=== PATIENT | female | born 1970 | race American Indian/Alaskan Native ===

== ENCOUNTER 2018-12-16 17:33 | Emergency (ER) | payer SELFPAY ==
[2018-12-16 18:00] VITALS: BP 100/47
[2018-12-16] MEDS ORDERED: ASPIRIN PO ONE (18:02)
--- NOTE | 2018-12-16 19:47 | XRay Report ---
CHEST 1 VIEW INDICATION / CLINICAL INFORMATION: Chest Pain. COMPARISON: 01/26/2015 FINDINGS: SUPPORT DEVICES: None. HEART / MEDIASTINUM: No significant abnormality. LUNGS / PLEURA: No significant pulmonary or pleural abnormality.. No pneumothorax. ADDITIONAL FINDINGS: No significant additional findings. IMPRESSION: 1. No acute findings. Signer Name: Horacio Johnson MD Signed: 12/16/2018 7:43 PM Workstation Name: [id number]
[2018-12-16 19:53] LABS: Eosinophils # (Auto) 0.1 K/mm3 (0.0-0.4); Eosinophils % (Auto) 3.4 % (0.0-4.3); Hematocrit 42.6 % (30.3-42.9); Lymphocytes # (Auto) 2.1 K/mm3 (1.2-5.4); Mean Corpuscular HGB Conc 33 % (30-34); Mean Corpuscular Volume 88 fl (79-97); Monocytes # (Auto) 0.3 K/mm3 (0.0-0.8); Monocytes % (Auto) 5.9 % (0.0-7.3); Platelet Count 158 K/mm3 (140-440); Red Blood Count 4.85 M/mm3 (3.65-5.03); Red Cell Distribution Width 13.6 % (13.2-15.2)
[2018-12-16 19:59] LABS: BUN/Creatinine Ratio 13; Blood Urea Nitrogen 9 mg/dL (7-17); Calcium 10.7 mg/dL (8.4-10.2); Hemolysis Index 47
== END 2018-12-16 22:55 | disposition left against medical advice (07) ==
LOC: ED 17:33
DX: R07.89 Other chest pain (principal); Z53.21 Procedure and treatment not carried out due to patient leaving prior to being seen by health care provider
CPT/HCPCS: 36415; 71045; 80048; 84484; 85025; 93005; 93010

== ENCOUNTER 2019-03-03 20:50 | Emergency (ER) | payer OTHER ==
[2019-03-03 23:05] LABS: Bacteria,Urine 1+ /HPF (Negative); Bilirubin,Urine NEG (Negative); Blood,Urine NEG (Negative); Color,Urine Yellow (Yellow); Mucus,Urine FEW /HPF; Protein,Urine <15 mg/dL mg/dL (Negative); Urobilinogen,Urine < 2.0 mg/dL (<2.0)
[2019-03-03 23:21] VITALS: BP 124/65
[2019-03-04] MEDS ORDERED: ALBUTEROL 2.5 MG/3 ML NEBU IH ONE (00:50)
[2019-03-04] MEDS ORDERED: IBUPROFEN 800 MG TAB PO ONE (00:50)
[2019-03-04] MEDS ORDERED: predniSONE 20 MG TAB PO ONE (00:50)
--- NOTE | 2019-03-04 03:29 | Emergency Department Report ---
- General Chief Complaint: Urogenital-Female Stated Complaint: UTI /ASTHMA Time Seen by Provider: 03/04/19 00:49 Source: patient Mode of arrival: Ambulatory Limitations: No Limitations - History of Present Illness Initial Comments: ms. Meyer is a 48 y/o aaf who presents to ER for coughing and wheezing 3 days. Daughter is here tonight for same symptoms. Patient has a history of bronchitis asthma. States she is out of albuterol inhaler, patient denies of the symptoms of dizziness no lightheadedness no headache no nausea vomiting no back pain Pt does endorse intermittent dysuria MD Complaint: cough, sore throat, rhinorrhea, nasal congestion, other (wheezing ) Onset/Timin -: days(s) Severity scale (0 -10): 4 Quality: sharp Consistency: constant Improves With: nothing Worsens With: activity, other (environmental exposure) Associated Symptoms: rhinorrhea, nasal congestion, sore throat, cough Treatments Prior to Arrival: none - Related Data Home Medications Medication Instructions Recorded Confirmed Last Taken metFORMIN [Glucophage] 1,000 mg PO BID 01/26/15 05/06/15 05/05/15 Albuterol Sulfate [Proventil HFA] 2 puff IH PRN PRN 02/16/15 05/06/15 05/06/15 12:00 Acetaminophen [Tylenol] 500 mg PO Q4HR 05/06/15 05/06/15 1 Week Ago ~04/29/15 Ibuprofen [Motrin] 400 mg PO Q6H PRN 05/06/15 05/06/15 2 Weeks Ago ~04/22/15 Previous Rx's Medication Instructions Recorded Last Taken Type HYDROcodone/APAP 5-325 [[place] 1 each PO Q6HR PRN #30 tablet 05/07/15 Unknown Rx 5/325] Ibuprofen [Motrin] 800 mg PO Q8HR PRN #30 tablet 05/07/15 Unknown Rx oxyCODONE /ACETAMINOPHEN [Percocet 1 tab PO Q6HR PRN #30 tablet 05/07/15 Unknown Rx 5/325] ALBUTEROL NEB's [Proventil 0.083% 2.5 mg IH Q6H PRN #25 vial 03/04/19 Unknown Rx NEBS] Azithromycin [Zithromax Z-GAGE] 250 mg PO DAILY #6 tab 03/04/19 Unknown Rx Ibuprofen [Motrin 800 MG tab] 800 mg PO Q8HR PRN #30 tablet 03/04/19 Unknown Rx predniSONE [Deltasone] 20 mg PO QDAY 5 Days #10 tab 03/04/19 Unknown Rx Allergies Allergy/AdvReac Type Severity Reaction Status Date / Time No Known Allergies Allergy Verified 04/29/15 10:01 ED Review of Systems ROS: Stated complaint: UTI /ASTHMA Other details as noted in HPI Constitutional: denies: chills, fever Eyes: denies: eye pain, eye discharge, vision change ENT: ear pain, throat pain, congestion Respiratory: cough, shortness of breath, wheezing Cardiovascular: denies: chest pain, palpitations Endocrine: no symptoms reported Gastrointestinal: denies: abdominal pain, nausea, vomiting, diarrhea Genitourinary: frequency, dyspareunia. denies: urgency, dysuria, hematuria, discharge Musculoskeletal: denies: back pain, joint swelling, arthralgia Skin: as per HPI Neurological: denies: headache, weakness, paresthesias Psychiatric: denies: anxiety, depression Hematological/Lymphatic: denies: easy bleeding, easy bruising ED Past Medical Hx - Past Medical History Previous Medical History?: Yes Hx Hypertension: No Hx Congestive Heart Failure: No Hx Diabetes: Yes Hx Renal Disease: No Hx Seizures: No Hx Asthma: Yes (last used inhaler 04/28/15) Hx COPD: No Additional medical history: Menorrhagia. Anemia - Surgical History Past Surgical History?: Yes Additional Surgical History: back surgery. partial hysterectomy - Social History Smoking Status: Current Every Day Smoker - Medications Home Medications: Home Medications Medication Instructions Recorded Confirmed Last Taken Type metFORMIN [Glucophage] 1,000 mg PO BID 01/26/15 05/06/15 05/05/15 History Albuterol Sulfate [Proventil HFA] 2 puff IH PRN PRN 02/16/15 05/06/15 05/06/15 12:00 History Acetaminophen [Tylenol] 500 mg PO Q4HR 05/06/15 05/06/15 1 Week Ago History ~04/29/15 Ibuprofen [Motrin] 400 mg PO Q6H PRN 05/06/15 05/06/15 2 Weeks Ago History ~04/22/15 HYDROcodone/APAP 5-325 [[place] 1 each PO Q6HR PRN #30 tablet 05/07/15 Unknown Rx 5/325] Ibuprofen [Motrin] 800 mg PO Q8HR PRN #30 tablet 05/07/15 Unknown Rx oxyCODONE /ACETAMINOPHEN [Percocet 1 tab PO Q6HR PRN #30 tablet 05/07/15 Unknown Rx 5/325] ALBUTEROL NEB's [Proventil 0.083% 2.5 mg IH Q6H PRN #25 vial 03/04/19 Unknown Rx NEBS] Azithromycin [Zithromax Z-GAGE] 250 mg PO DAILY #6 tab 03/04/19 Unknown Rx Ibuprofen [Motrin 800 MG tab] 800 mg PO Q8HR PRN #30 tablet 03/04/19 Unknown Rx predniSONE [Deltasone] 20 mg PO QDAY 5 Days #10 tab 03/04/19 Unknown Rx ED Physical Exam - General Limitations: No Limitations General appearance: alert, in no apparent distress - Head Head exam: Present: atraumatic, normocephalic - Eye Eye exam: Present: normal appearance, PERRL, EOMI Pupils: Present: normal accommodation - ENT ENT exam: Present: mucous membranes moist - Neck Neck exam: Present: normal inspection, tenderness (robe on urinalysis), full ROM - Respiratory Respiratory exam: Present: wheezes. Absent: respiratory distress, rales, rhonchi, stridor, chest wall tenderness, decreased breath sounds, prolonged expiratory - Cardiovascular Cardiovascular Exam: Present: regular rate, normal rhythm, normal heart sounds (the same). Absent: systolic murmur, diastolic murmur, rubs, gallop - GI/Abdominal GI/Abdominal exam: Present: soft, normal bowel sounds. Absent: distended, tenderness, bruit, hernia - Extremities Exam Extremities exam: Present: normal inspection, full ROM, normal capillary refill - Back Exam Back exam: Present: normal inspection, full ROM. Absent: tenderness, CVA tenderness (R), CVA tenderness (L), rash noted - Neurological Exam Neurological exam: Present: alert, oriented X3, CN II-XII intact, normal gait, reflexes normal. Absent: motor sensory deficit - Psychiatric Psychiatric exam: Present: normal affect, normal mood - Skin Skin exam: Present: warm, dry, intact, normal color. Absent: rash ED Course Vital Signs 03/03/19 23:19 Temperature 97.6 F Pulse Rate 79 Respiratory 18 Rate Blood Pressure 124/65 O2 Sat by Pulse 95 Oximetry ED Medical Decision Making - Medical Decision Making symptoms improved , plan: tx for for bronchitis , UTI, azithromycin, albuterol, ibuprofen, tessalon pearls, follow up with pcp in 2-3 days. return to emergency is symptoms worsen. Critical care attestation.: If time is entered above; I have spent that time in minutes in the direct care of this critically ill patient, excluding procedure time. ED Disposition Clinical Impression: Bronchitis UTI (urinary tract infection) Qualifiers: Urinary tract infection type: acute cystitis Hematuria presence: without hematuria Qualified Code(s): N30.00 - Acute cystitis without hematuria Disposition: TO HOME OR SELFCARE Is pt being admited?: No Does the pt Need Aspirin: No Condition: Stable Instructions: Chronic Bronchitis (ED) Prescriptions: predniSONE [Deltasone] 20 mg PO QDAY 5 Days #10 tab Ibuprofen [Motrin 800 MG tab] 800 mg PO Q8HR PRN #30 tablet PRN Reason: pain fever ALBUTEROL NEB's [Proventil 0.083% NEBS] 2.5 mg IH Q6H PRN #25 vial PRN Reason: shortness of breath wheezing Azithromycin [Zithromax Z-GAGE] 250 mg PO DAILY #6 tab Referrals: [facility] [Outside] - 3-5 Days Forms: Work/School Release Form(ED)
== END 2019-03-04 03:25 | disposition home or self-care (01) ==
LOC: ED 20:50
DX: J40 Bronchitis, not specified as acute or chronic (principal); N39.0 Urinary tract infection, site not specified; E11.9 Type 2 diabetes mellitus without complications; F17.200 Nicotine dependence, unspecified, uncomplicated; Z90.710 Acquired absence of both cervix and uterus; Z98.890 Other specified postprocedural states; Z79.1 Long term (current) use of non-steroidal anti-inflammatories (NSAID); Z79.899 Other long term (current) drug therapy
CPT/HCPCS: 81001; 94640; 99283; J7512

== ENCOUNTER 2021-05-11 00:01 | Emergency (ER) | payer SELFPAY ==
[2021-05-11] MEDS ORDERED: oxyCODONE /ACETAMINOPHEN 5-325MG TAB PO ONE (04:09)
--- NOTE | 2021-05-11 04:19 | Emergency Department Report ---
ED ENT HPI - General Chief complaint: Dental/Oral Stated complaint: TOOTH INFECTION/CHEST PAIN Time Seen by Provider: 05/11/21 04:07 Source: patient Mode of arrival: Ambulatory Limitations: No Limitations - History of Present Illness MD complaint: tooth pain -: Gradual Location: tooth # 1 - Area of pain to the small region. Quality: dull Consistency: constant Improves with: none Worsens with: none Context- Dental: trauma Associated Symptoms: toothache - Related Data Home Medications Medication Instructions Recorded Confirmed Last Taken metFORMIN [Glucophage] 1,000 mg PO BID 01/26/15 05/06/15 05/05/15 Albuterol Sulfate [Proventil HFA] 2 puff IH PRN PRN 02/16/15 05/06/15 05/06/15 12:00 Acetaminophen [Tylenol] 500 mg PO Q4HR 05/06/15 05/06/15 1 Week Ago ~04/29/15 Ibuprofen [Motrin] 400 mg PO Q6H PRN 05/06/15 05/06/15 2 Weeks Ago ~04/22/15 Previous Rx's Medication Instructions Recorded Last Taken Type HYDROcodone/APAP 5-325 [[place] 1 each PO Q6HR PRN #30 tablet 05/07/15 Unknown Rx 5/325] Ibuprofen [Motrin] 800 mg PO Q8HR PRN #30 tablet 05/07/15 Unknown Rx oxyCODONE /ACETAMINOPHEN [Percocet 1 tab PO Q6HR PRN #30 tablet 05/07/15 Unknown Rx 5/325] ALBUTEROL NEB's [Proventil 0.083% 2.5 mg IH Q6H PRN #25 vial 03/04/19 Unknown Rx NEBS] Azithromycin [Zithromax Z-GAGE] 250 mg PO DAILY #6 tab 03/04/19 Unknown Rx Ibuprofen [Motrin 800 MG tab] 800 mg PO Q8HR PRN #30 tablet 03/04/19 Unknown Rx predniSONE [Deltasone] 20 mg PO QDAY 5 Days #10 tab 03/04/19 Unknown Rx Amoxicillin [Amoxicillin TAB] 875 mg PO BID #20 tablet 05/11/21 Unknown Rx Chlorhexidine Mouthwash [Peridex] 15 ml MM BID #1 bottle 05/11/21 Unknown Rx Lidocaine Viscous 2% 5 ml MM Q3H PRN #120 udc 05/11/21 Unknown Rx Allergies Allergy/AdvReac Type Severity Reaction Status Date / Time No Known Allergies Allergy Verified 04/29/15 10:01 ED Dental HPI - General Chief complaint: Dental/Oral Stated complaint: TOOTH INFECTION/CHEST PAIN Time Seen by Provider: 05/11/21 04:07 Source: patient Mode of arrival: Ambulatory Limitations: No Limitations - Related Data Home Medications Medication Instructions Recorded Confirmed Last Taken metFORMIN [Glucophage] 1,000 mg PO BID 01/26/15 05/06/15 05/05/15 Albuterol Sulfate [Proventil HFA] 2 puff IH PRN PRN 02/16/15 05/06/15 05/06/15 1 2:00 Acetaminophen [Tylenol] 500 mg PO Q4HR 05/06/15 05/06/15 1 Week Ago ~04/29/15 Ibuprofen [Motrin] 400 mg PO Q6H PRN 05/06/15 05/06/15 2 Weeks Ago ~04/22/15 Previous Rx's Medication Instructions Recorded Last Taken Type HYDROcodone/APAP 5-325 [[place] 1 each PO Q6HR PRN #30 tablet 05/07/15 Unknown Rx 5/325] Ibuprofen [Motrin] 800 mg PO Q8HR PRN #30 tablet 05/07/15 Unknown Rx oxyCODONE /ACETAMINOPHEN [Percocet 1 tab PO Q6HR PRN #30 tablet 05/07/15 Unknown Rx 5/325] ALBUTEROL NEB's [Proventil 0.083% 2.5 mg IH Q6H PRN #25 vial 03/04/19 Unknown Rx NEBS] Azithromycin [Zithromax Z-GAGE] 250 mg PO DAILY #6 tab 03/04/19 Unknown Rx Ibuprofen [Motrin 800 MG tab] 800 mg PO Q8HR PRN #30 tablet 03/04/19 Unknown Rx predniSONE [Deltasone] 20 mg PO QDAY 5 Days #10 tab 03/04/19 Unknown Rx Amoxicillin [Amoxicillin TAB] 875 mg PO BID #20 tablet 05/11/21 Unknown Rx Chlorhexidine Mouthwash [Peridex] 15 ml MM BID #1 bottle 05/11/21 Unknown Rx Lidocaine Viscous 2% 5 ml MM Q3H PRN #120 udc 05/11/21 Unknown Rx Allergies Allergy/AdvReac Type Severity Reaction Status Date / Time No Known Allergies Allergy Verified 04/29/15 10:01 ED Review of Systems ROS: Stated complaint: TOOTH INFECTION/CHEST PAIN Other details as noted in HPI Comment: All other systems reviewed and negative ED Past Medical Hx - Past Medical History Hx Hypertension: No Hx Congestive Heart Failure: No Hx Diabetes: Yes Hx Renal Disease: No Hx Seizures: No Hx Asthma: Yes (last used inhaler 04/28/15) Hx COPD: No Additional medical history: Menorrhagia. Anemia - Surgical History Additional Surgical History: back surgery. partial hysterectomy - Social History Smoking Status: Current Every Day Smoker - Medications Home Medications: Home Medications Medication Instructions Recorded Confirmed Last Taken Type metFORMIN [Glucophage] 1,000 mg PO BID 01/26/15 05/06/15 05/05/15 History Albuterol Sulfate [Proventil HFA] 2 puff IH PRN PRN 02/16/15 05/06/15 05/06/15 12:00 History Acetaminophen [Tylenol] 500 mg PO Q4HR 05/06/15 05/06/15 1 Week Ago History ~04/29/15 Ibuprofen [Motrin] 400 mg PO Q6H PRN 05/06/15 05/06/15 2 Weeks Ago History ~04/22/15 HYDROcodone/APAP 5-325 [[place] 1 each PO Q6HR PRN #30 tablet 05/07/15 Unknown Rx 5/325] Ibuprofen [Motrin] 800 mg PO Q8HR PRN #30 tablet 05/07/15 Unknown Rx oxyCODONE /ACETAMINOPHEN [Percocet 1 tab PO Q6HR PRN #30 tablet 05/07/15 Unknown Rx 5/325] ALBUTEROL NEB's [Proventil 0.083% 2.5 mg IH Q6H PRN #25 vial 03/04/19 Unknown Rx NEBS] Azithromycin [Zithromax Z-GAGE] 250 mg PO DAILY #6 tab 03/04/19 Unknown Rx Ibuprofen [Motrin 800 MG tab] 800 mg PO Q8HR PRN #30 tablet 03/04/19 Unknown Rx predniSONE [Deltasone] 20 mg PO QDAY 5 Days #10 tab 03/04/19 Unknown Rx Amoxicillin [Amoxicillin TAB] 875 mg PO BID #20 tablet 05/11/21 Unknown Rx Chlorhexidine Mouthwash [Peridex] 15 ml MM BID #1 bottle 05/11/21 Unknown Rx Lidocaine Viscous 2% 5 ml MM Q3H PRN #120 udc 05/11/21 Unknown Rx ED Physical Exam - General Limitations: No Limitations General appearance: alert, in no apparent distress - Head Head exam: Present: atraumatic, normocephalic - Eye Eye exam: Present: normal appearance - ENT ENT exam: Present: mucous membranes moist, other - Neck Neck exam: Present: normal inspection - Respiratory Respiratory exam: Present: normal lung sounds bilaterally. Absent: respiratory distress - Cardiovascular Cardiovascular Exam: Present: regular rate, normal rhythm. Absent: systolic murmur, diastolic murmur, rubs, gallop - GI/Abdominal GI/Abdominal exam: Present: soft, normal bowel sounds - Extremities Exam Extremities exam: Present: normal inspection - Back Exam Back exam: Present: normal inspection - Neurological Exam Neurological exam: Present: alert, oriented X3 - Psychiatric Psychiatric exam: Present: normal affect, normal mood - Skin Skin exam: Present: warm, dry, intact, normal color. Absent: rash ED Course Vital Signs 05/11/21 05/11/21 00:41 00:51 Temperature 98.1 F 98.1 F Pulse Rate 81 80 Respiratory 18 16 Rate Blood Pressure 138/83 165/95 O2 Sat by Pulse 95 97 Oximetry Critical care attestation.: If time is entered above; I have spent that time in minutes in the direct care of this critically ill patient, excluding procedure time. ED Disposition Clinical Impression: Dentalgia Disposition: 01 HOME / SELF CARE / HOMELESS Is pt being admited?: No Does the pt Need Aspirin: No Condition: Stable Instructions: Acute Pain, Adult Prescriptions: Amoxicillin [Amoxicillin TAB] 875 mg PO BID #20 tablet Lidocaine Viscous 2% 5 ml MM Q3H PRN #120 udc PRN Reason: Pain, Moderate (4-6) Chlorhexidine Mouthwash [Peridex] 15 ml MM BID #1 bottle Referrals: [facility] [Outside] - 3-5 Days
[2021-05-11 05:29] VITALS: BP 135/76
== END 2021-05-11 05:26 | disposition home or self-care (01) ==
LOC: ED 00:01
DX: K08.89 Other specified disorders of teeth and supporting structures (principal); E11.8 Type 2 diabetes mellitus with unspecified complications; F17.200 Nicotine dependence, unspecified, uncomplicated; J45.909 Unspecified asthma, uncomplicated
CPT/HCPCS: 99282